=== PATIENT | female | born 1955 | race Caucasian/White ===

== ENCOUNTER 2021-07-10 09:37 | Emergency (ER) | payer OTHER ==
[2021-07-10 10:26] LABS: BILIRUBIN NEGATIVE (NEGATIVE); BLOOD 3+ Ery/uL (NEGATIVE); CLARITY HAZY (CLEAR); COLOR YELLOW (YELLOW); GLUCOSE (U) NORMAL (NORMAL); LEUKOCYTES NEGATIVE Leu/uL (NEGATIVE); NITRITE NEGATIVE (NEGATIVE); PROTEIN NEGATIVE (NEGATIVE); SPECIFIC GRAVITY >=1.030 (1.001-1.030); UROBILINOGEN 0.2 mg/dL (0.2-1.0); pH 5.5 (5.0-9.0)
[2021-07-10 10:50] LABS: BASOPHIL 0.7 % (0-2); HCT 38.8 % (37.0-47.0); HGB 12.5 g/dl (12.5-16.0); LYMPHOCYTE 17.9 % (15-48); MCH 30.6 pg (25.0-31.0); MCHC 32.2 g/dL (32.0-36.0); MCV 94.9 fL (78.0-100.0); MONOCYTE 6.6 % (0-12); MPV 9.8 fL (6.0-9.5); NEUTROPHIL 72.7 % (41-80); NRBC 0; PLT 257 K/uL (150-400); RBC 4.09 M/uL (4.20-5.40); RDW 12.7 % (11.5-14.0); WBC 6.8 K/uL (4.0-10.5)
[2021-07-10 11:01] LABS: MUCOUS TRACE; URINARY RBC TNTC
[2021-07-10 11:03] LABS: BACTERIA TRACE
[2021-07-10 11:28] LABS: ALBUMIN 4.4 g/dL (3.4-5.0); BILIRUBIN - TOTAL 0.5 mg/dL (0.2-1.0); BUN/CREAT RATIO (CALC) 18.1 RATIO; CREATININE 0.83 mg/dL (0.51-0.95); GLOBULIN (CALCULATION) 3.9 g/dL; TOTAL PROTEIN 8.3 g/dL (6.4-8.2)
[2021-07-10] MEDS ORDERED: PERCOCET 5-3251 EACH PO (12:40)
[2021-07-10] MEDS ORDERED: MACROBID100 MG PO (12:40)
[2021-07-10] MEDS ORDERED: ONDANSETRON ODT4 MG PO (12:40)
[2021-07-10] MEDS ORDERED: MOTRIN600 MG PO (12:40)
== END 2021-07-10 12:41 | disposition home or self-care (01) ==
LOC: FER 09:37
PROVIDERS: Emergency Medicine
DX: N13.2 Hydronephrosis with renal and ureteral calculous obstruction (principal); Z87.442 Personal history of urinary calculi
CPT/HCPCS: 36415; 80053; 81001; 85025; J1885; J2270; J2405

== ENCOUNTER 2021-12-23 11:14 | Emergency (ER) | payer OTHER ==
[~2021-12-23 11:14] MED LIST: MACROBID100 MG PO; MOTRIN600 MG PO; ONDANSETRON ODT4 MG PO; PERCOCET 5-3251 EACH PO
[2021-12-23 13:31] LABS: BASOPHIL 1.2 % (0-2); EOSINOPHIL 3.6 % (0-7); HCT 37.2 % (37.0-47.0); HGB 11.9 g/dl (12.5-16.0); LYMPHOCYTE 24.9 % (15-48); MCH 30.7 pg (25.0-31.0); MCV 96.1 fL (78.0-100.0); MONOCYTE 11.7 % (0-12); MPV 9.4 fL (6.0-9.5); NEUTROPHIL 58.4 % (41-80); NRBC 0; PLT 237 K/uL (150-400); RBC 3.87 M/uL (4.20-5.40); RDW 13.2 % (11.5-14.0); WBC 4.2 K/uL (4.0-10.5)
[2021-12-23 13:55] LABS: BUN/CREAT RATIO (CALC) 18.4 RATIO; CREATININE 0.76 mg/dL (0.51-0.95)
[2021-12-23] MEDS ORDERED: ANTIVERT25 MG PO (14:15)
== END 2021-12-23 14:23 | disposition home or self-care (01) ==
LOC: FER 11:14
PROVIDERS: Nurse Practitioner Family
DX: H81.12 Benign paroxysmal vertigo, left ear (principal); I10 Essential (primary) hypertension
CPT/HCPCS: 36415; 70450; 80048; 85025; J7030